=== PATIENT | male | born 1950 | race Caucasian/White ===

== ENCOUNTER 2018-06-03 06:50 | Day surgery (SDC) | payer BC ==
[2018-06-03] MEDS ORDERED: PROPOFOL 200 MG INJ (07:00)
[2018-06-03] MEDS ORDERED: LIDOCAINE 2% (SDV) 5 ML INJ ×2 (07:00→09:26)
[2018-06-03] MEDS: DICLOFENAC 0.1% 2.5 ML OPH OPER (08:31)
[2018-06-03] MEDS: MOXIFLOXACIN 0.5% 3 ML OPH OPER (08:32)
[2018-06-03] MEDS: TROPICAMIDE 1% 15 ML OPH OPER (08:32)
[2018-06-03] MEDS: CYCLOPENTOLATE/PHENYLEPH 5 ML OPH XX (08:32)
[2018-06-03] MEDS: SOD CHLORIDE 0.9% 1,000 ML IV (09:00)
[2018-06-03] MEDS ORDERED: BUPIVACAINE 0.75% (MPF) 10 ML INJ (10:22)
[2018-06-03] MEDS ORDERED: TETRACAINE 0.5% 4 ML OPH (10:22)
[2018-06-03] MEDS: CEFAZOLIN 1 GM INJ (10:58)
[2018-06-03] MEDS: DEXAMETHASONE 4 MG/ML 1 ML INJ (10:58)
[2018-06-03] MEDS: CARBACHOL 0.01% 1.5 ML OPH INJ (10:59)
[2018-06-03] MEDS: NA HYALURONATE/CHONDROITIN 0.5 ML SYG OP (10:59)
[2018-06-03] MEDS ORDERED: IPRATROPIUM (NEB) 0.5 MG/2.5 ML AMP HHN (11:00)
[2018-06-03] MEDS ORDERED: ONDANSETRON 4 MG INJ IV (11:00)
[2018-06-03] MEDS ORDERED: FENTAnyl 50 MCG/ML VIAL IV ×3 (11:00)
[2018-06-03] MEDS ORDERED: MEPERIDINE 25 MG INJ IV (11:00)
[2018-06-03] MEDS ORDERED: DIPHENHYDRAMINE 50 MG INJ IV (11:00)
[2018-06-03] MEDS ORDERED: OXYCODONE/ACETAMINOPHEN (5/325) TAB PO ×2 (11:00)
[2018-06-03] MEDS ORDERED: hydrALAzine 20 MG INJ IV (11:00)
[2018-06-03] MEDS ORDERED: LABETALOL HCL 20MG INJ IV (11:00)
[2018-06-03] MEDS ORDERED: ALBUTEROL 0.083% (NEB) 2.5 MG/3 ML AMP HHN (11:00)
[2018-06-03] MEDS ORDERED: TRIMETHOBENZAMIDE 100 MG/ML VIAL IM (11:00)
[2018-06-03] MEDS ORDERED: MIDAZOLAM 1 MG/ML 2 ML INJ IV (11:00)
[2018-06-03] MEDS ORDERED: HYDROmorphONE 1 MG/5 ML IV SYRINGE IV ×3 (11:00)
[2018-06-03] MEDS ORDERED: EPHEDrine SULFATE 50 MG/5 ML SYG IV (11:00)
== END 2018-06-03 12:10 | disposition home or self-care (01) ==
LOC: SDS 06:50
DX: H25.042 Posterior subcapsular polar age-related cataract, left eye (principal); E78.5 Hyperlipidemia, unspecified; E11.9 Type 2 diabetes mellitus without complications; Z79.84 Long term (current) use of oral hypoglycemic drugs
CPT/HCPCS: 66984; 82962